=== PATIENT | female | born 1985 | race Caucasian/White ===

== ENCOUNTER → 2021-05-21 07:35 | Outpatient (CLI) | payer OTHER, SELFPAY ==
--- NOTE | 2021-05-21 | DI.MRI.S_ITS ---
PROCEDURE: MR ANKLE LT WO CON INDICATIONS: Pain in left ankle and joints of left foot TECHNIQUE: Noncontrast sagittal T1 spin echo and T2 fast spin echo with fat saturation, axial proton density fast spin echo and T2 fast spin echo with fat saturation, coronal T1 spin echo and T2 fast spin echo with fat saturation through the ankle/hindfoot. COMPARISON: None. FINDINGS: Bones and joints: Bones: No marrow contusions or fractures. Scattered degenerative subchondral sclerosis and spurring. Coalitions: No hindfoot coalitions. Talar dome: No osteochondral injuries of the talar dome. Other: Small tibiotalar joint effusion. Medial structures: Posterior tibialis: Intact. Mild tenosynovitis. Flexor digitorum longus: Intact. Mild tenosynovitis. Flexor hallucis longus: Intact. Posterior tibial neurovascular bundle: Normal. Deltoid ligament complex: Intact. Spring ligament: Intact. Lateral structures: Anterior talofibular ligament: Intact. Mild low signal thickening raising possibility of chronic low-grade sprain. Calcaneofibular ligament: Chronic low-grade sprain. Posterior talofibular ligament: Intact. Anterior tibiofibular ligament: Intact. Posterior tibiofibular ligament: Intact. Intermalleolar ligament: Intact. Tibiofibular syndesmosis: Normal. Peroneus longus: Intact. Minimal tenosynovitis. Peroneus brevis: Intact. Minimal tenosynovitis. Bony peroneal tubercle and retrotrochlear prominence: Normal. Sinus tarsi: Normal. Multiloculated presumed ganglion cyst seen at the lateral midfoot measuring 2.2 x 1.8 x 0.9 cm . This is in the area of the fiducial marker placed on the skin surface. Additional similar appearing 0.9 cm loculated ganglion cyst seen at the posterior recess of the tibiotalar joint on image 14/6. Anterior structures: Tibialis anterior: Intact. Extensor hallucis longus: Intact. Extensor digitorum longus: Intact. Dorsal talonavicular ligament: Intact. Posterior and plantar structures: Achilles tendon: Intact. There is minimal fluid within the retrocalcaneal bursa. Plantar fascia: Intact. Muscles: No abductor digiti quinti muscle atrophy to suggest Hdz neuropathy. IMPRESSION: Ganglion cyst measuring 2.2 cm in the area of the fiducial marker placed on the skin surface. Additional similar appearing although smaller ganglion cyst seen at the posterior recess of the tibiotalar joint. Mild posterior tibialis, flexor digitorum longus and peroneal tenosynovitis. Small tibiotalar joint effusion. Dictated by: Walt Cody M.D. on 05/21/2021 at 14:01 Approved by: Walt Cody M.D. on 05/21/2021 at 14:10
== END ==
PROVIDERS: PCP Family Medicine; Referring Provider Podiatrist; Visit Provider Podiatrist
DX: M25.572 Pain in left ankle and joints of left foot (principal); M67.472 Ganglion, left ankle and foot; M65.872 Other synovitis and tenosynovitis, left ankle and foot; M79.672 Pain in left foot; M25.472 Effusion, left ankle; R26.2 Difficulty in walking, not elsewhere classified
CPT/HCPCS: 73721